=== PATIENT | male | born 1945 | race Caucasian/White ===

== ENCOUNTER 2016-06-26 10:29 | Emergency (ER) | payer MEDICARE ==
[~2016-06-26] VITALS: Ht 175.3 cm; Wt 80.0 kg
[2016-06-26 10:31] VITALS: BP 198/89; PULSE 59; RESP 1; RESP 12; TEMP 97.7; O2SAT 97
[2016-06-26 10:50] VITALS: BP 183/84; PULSE 57; RESP 16; O2SAT 96
--- NOTE | 2016-06-26 11:16 | PD ---
HPI Chief Complaint: Back/ Neck Pain or Injury Time Seen by Provider: 10:49 Travel History International Travel<30 days: No Contact w/Intl Traveler<30days: No Traveled to known affect area: No History of Present Illness HPI Patient is a 70-year-old male with history of laminectomy to the lumbar spine 25 -30 years ago, presents to the emergency room with complaints of acute on chronic sciatica. Patient reports that he has history of sciatica, reports that he recently came to [place] from [place] as he has a "snow bird." Reports that he has been more active and [place] as opposed to [place], reports that he walks on the beach for a few miles every day now and plays a full round of golf almost daily. Patient reports that since being here, his sciatica has acted up.reports that he has had increased left lower back pain which radiates to his left thigh. Patient reports that his symptoms feel exactly the same as when he has had sciatica in the past. Patient reports that he does not have a primary care doctor here and wanted to get a script to help with his inflammation. Reports that he went to the urgent care center but was told to come to the ER for evaluation. Patient at this time has no back pain. Patient reports no sciatic at this time. Patient denies any incontinence of urine or stool. Patient denies urinary retention. Patient is ambulating in the emergency with normal gait. Patient with no saddle anesthesia. Patient reports that he has no pain, but would like something just in case he has return of symptoms. PFSH Past Medical History Cancer: Yes (SKIN CA LEFT CHEEK) Medical other: Yes (CHRONIC LOWER BACK PAIN / DEPRESSED SKULL FX.) Influenza Vaccination: Yes Past Surgical History Tonsillectomy: Yes Other Surgery: Yes (BACK SURGERY 1991 / SKIN CA REMOVED FROM LEFT FACE) Social History Alcohol Use: Yes (OCCASIONALLY) Tobacco Use: No Substance Use: No Allergies-Medications (Allergen,Severity, Reaction): Coded Allergies: No Known Allergies (Unverified , 06/26/16) Reported Meds & Prescriptions Reported Meds & Active Scripts Active No Active Prescriptions or Reported Medications Review of Systems General / Constitutional: No: Fever Eyes: No: Visual changes HENT: No: Headaches Cardiovascular: No: Chest Pain or Discomfort Respiratory: No: Shortness of Breath Gastrointestinal: No: Abdominal Pain Genitourinary: No: Dysuria Musculoskeletal: No: Pain Skin: No Rash Neurologic: No: Weakness Psychiatric: No: Depression Endocrine: No: Polydipsia Hematologic/Lymphatic: No: Easy Bruising Physical Exam Narrative GENERAL: No acute distress, nontoxic SKIN: Warm and dry. HEAD: Atraumatic. Normocephalic. EYES: Pupils equal and round. No scleral icterus. No injection or drainage. ENT: No nasal bleeding or discharge. Mucous membranes pink and moist. NECK: Trachea midline. No JVD. CARDIOVASCULAR: Regular rate and rhythm. No murmur appreciated. RESPIRATORY: No accessory muscle use. Clear to auscultation. Breath sounds equal bilaterally. GASTROINTESTINAL: Abdomen soft, non-tender, nondistended. Hepatic and splenic margins not palpable. Patient with no saddle anesthesia MUSCULOSKELETAL: No obvious deformities. No clubbing. No cyanosis. No edema. Patient with no midline tenderness, no back tenderness. NEUROLOGICAL: Awake and alert. No obvious cranial nerve deficits. Motor grossly within normal limits. Normal speech. Patient with no pain with leg raises. Patient ambulating in the emergency room with normal gait PSYCHIATRIC: Appropriate mood and affect; insight and judgment normal. Data Data Last Documented VS Vital Signs Date Time Temp Pulse Resp B/P Pulse Ox O2 Delivery O2 Flow Rate FiO2 06/26/16 10:50 57 16 183/84 96 Room Air 06/26/16 10:31 97.7 2 [facility] Medical Decision Making Medical Screen Exam Complete: Yes Emergency Medical Condition: Yes Interpretation(s) Vital Signs Date Time Temp Pulse Resp B/P Pulse Ox O2 Delivery O2 Flow Rate FiO2 06/26/16 10:50 57 16 183/84 96 Room Air 06/26/16 10:31 97.7 59 12 198/89 97 Room Air 2 Differential Diagnosis Sciatica, muscle strain, cauda equina, lumbar fracture Narrative Course Patient is a 70-year-old male with history of acute on chronic low back pain with history of laminectomy 25-30 years ago, presents to emergency room with complaints of left-sided sciatica. Patient reports that he has been having his sciatica acting up on him since being in [place]. Patient reports that sciatica is worse with activity as he has been walking a few miles per day and has been playing golf almost daily. Patient reports no signs of cauda equina, patient with no saddle anesthesia, no incontinence of urine or bowel, patient ambulating in ER with normal gait. Patient reports that he feels fine right now and has no symptoms at this time. Patient reports that he doesn't want any tests or studies on his low back, requests only a prescription for anti- inflammatory medications as this usually helps him when he has sciatica flareups. Vital Signs Date Time Temp Pulse Resp B/P Pulse Ox O2 Delivery O2 Flow Rate FiO2 06/26/16 10:50 57 16 183/84 96 Room Air 06/26/16 10:31 97.7 59 12 198/89 97 Room Air 2 Vital signs are stable, patient is ambulating in the emergency room with normal gait. Patient with no signs of cauda equina, patient reports no back pain at this time. Will give patient prescription for Medrol Dosepak as well as ibuprofen. Signs and symptoms of when to return to the emergency room was reviewed with patient in detail. Patient will return to ER as needed. Diagnosis Primary Impression: Sciatica of left side Patient Instructions: General Instructions Additional Instructions: Return to the emergency room if symptoms progress or worsen or return Please follow-up with primary care doctor as soon as possible Med/Other Pt SpecificInfo: Prescription(s) given Scripts Ibuprofen 600 Mg [id number] Mg PO Q6H PRN (Pain/Inflammation) #40 TAB Ref 0 Prov:Luisa Tong DO 06/26/16 Methylprednisolone Dosepak (Medrol Dosepak)4 Mg Dspk4 Mg PO DIRECTED #1 DSPK Ref 0 Per Pharmacist direction Prov:Luisa Tong DO 06/26/16 Disposition: 01 DISCHARGE HOME Condition: Stable Luisa Tong DO Jun 26, 2016 11:16
[2016-06-26] MEDS ORDERED: MEDR4PAK PO (11:38)
[2016-06-26] MEDS ORDERED: IBUP-232 PO (11:38)
== END 2016-06-26 12:12 | disposition home or self-care (01) ==
LOC: NEPC 10:29
DX: M54.32 Sciatica, left side (principal)